=== PATIENT | female | born 1990 | race Caucasian/White ===

== ENCOUNTER 2016-11-30 04:09 | Emergency (ER) | payer BC ==
[2016-11-30] MEDS ORDERED: NS 0.9% 1000 ML* 1,000 ML IV ONE ×2 (04:26→05:20)
[2016-11-30] MEDS ORDERED: Ondansetron INJ* 2 MG/ML VIAL IV ONE (04:26)
[2016-11-30 04:49] LABS: Hematocrit 44 % (35-47); Hemoglobin 14.8 g/dl (12.0-16.0); Mean Corpuscular HGB Conc 34 g/dl (31-36); Mean Corpuscular Hemoglobin 31 pg (27-31); Mean Corpuscular Volume 91 fL (80-97); Mean Platelet Volume 9 um3 (7.4-10.4); Red Blood Count 4.83 10^6/ul (4.0-5.4); Red Cell Distribution Width 13 % (10.5-15); White Blood Count 14.8 10^3/ul (3.5-10.8)
[2016-11-30 05:01] LABS: ALT 18 U/L (7-52); AST 21 U/L (13-39); Albumin 4.3 g/dL (3.2-5.2); Alkaline Phosphatase 50 U/L (34-104); Anion Gap 10 mmol/L (2-11); BUN/Creatinine Ratio 23.2 (8-20); Blood Urea Nitrogen 19 mg/dL (6-24); C Reactive Protein 42.11 mg/L (< 5.00); CO2 Carbon Dioxide 24 mmol/L (22-32); Calcium 9.2 mg/dL (8.6-10.3); Chloride 101 mmol/L (101-111); EGFR African American 107.5 (>60); EGFR Non-African American 83.6 (>60); Globulin 2.3 g/dL (2-4); Glucose 129 mg/dL (70-100); Lipase 18 U/L (11.0-82.0); Magnesium 1.5 mg/dL (1.9-2.7); Potassium 3.1 mmol/L (3.5-5.0); Sodium 135 mmol/L (133-145); Total Protein 6.6 g/dL (6.4-8.9)
--- NOTE | 2016-11-30 05:37 | ED ---
Keny Hurd Billy, scribed for Eliud Luu MD on 11/30/16 at 0433 . GI/ HPI - HPI Summary HPI Summary: Patient is a 26 year-old female coming to [facility] presenting with multiple episodes of nausea and vomiting since 1200 yesterday. Her symptoms are worse with any PO intake. She also has a fever in the ED. Denies any diarrhea or urinary symptoms. She states that her abdomen is sore, diffusely, after her frequent episodes of emesis. Patient states that she had eaten at a [employer] the night before the onset of her symptoms. No prior GI disorders. LMP 3 weeks ago, IUD in place. - History of Current Complaint Chief Complaint: EDNauseaVomitDiarrh Time Seen by Provider: 11/30/16 04:18 Stated Complaint: VOMITING/WEAKNESS Hx Obtained From: Patient Timing: Constant Severity: Moderate Current Severity: Moderate Pain Intensity: 8 Location of Pain: Diffuse Associated Signs and Symptoms: Positive: Nausea, Vomiting, Fever, Abdominal Pain. Negative: Diarrhea Aggravating Factor(s): Food, Liquids Alleviating Factor(s): Nothing - Allergy/Home Medications Allergies/Adverse Reactions: Allergies Allergy/AdvReac Type Severity Reaction Status Date / Time Erythromycin Allergy Intermediate Rash Verified 02/16/13 09:08 PMH/Surg Hx/FS Hx/Imm Hx Endocrine/Hematology History: Denies: Hx Diabetes, Hx Thyroid Disease Cardiovascular History: Denies: Hx Hypertension Respiratory History: Reports: Hx Asthma - exercise induced as a child Denies: Hx Chronic Obstructive Pulmonary Disease (COPD) GI History: Denies: Hx Ulcer - Surgical History Surgery Procedure, Year, and Place: t&a as a child Infectious Disease History: No Infectious Disease History: Denies: Hx Hepatitis, Hx Human Immunodeficiency Virus (HIV), Traveled Outside the [place] in Last 30 Days - Family History Known Family History: Positive: Other Family History: Mother with diverticulitis. - Social History Alcohol Use: Occasionally Substance Use Type: Reports: None Review of Systems Positive: Fever Positive: Vomiting, Nausea. Negative: Diarrhea Negative: dysuria All Other Systems Reviewed And Are Negative: Yes Physical Exam Triage Information Reviewed: Yes Vital Signs On Initial Exam: Initial Vitals Temp Pulse Resp BP Pulse Ox 101.3 F 90 16 116/66 99 11/30/16 04:17 11/30/16 04:17 11/30/16 04:17 11/30/16 04:17 11/30/16 04:17 Vital Signs Reviewed: Yes Appearance: Positive: Well-Appearing, No Pain Distress Skin: Positive: Warm Eyes: Positive: ROCIO ENT: Positive: Hearing grossly normal Neck: Positive: Supple Respiratory/Lung Sounds: Positive: Clear to Auscultation, Breath Sounds Present Cardiovascular: Positive: RRR Abdomen Description: Positive: Nontender, No Organomegaly, Soft Bowel Sounds: Positive: Present Musculoskeletal: Positive: Strength/ROM Intact Neurological: Positive: Sensory/Motor Intact, Alert, Oriented to Person Place, Time Psychiatric: Positive: Normal Diagnostics - Vital Signs Vital Signs Temp Pulse Resp BP Pulse Ox 11/30/16 04:17 101.3 F 90 16 116/66 99 - Laboratory Lab Results: Lab Results 11/30/16 11/30/16 11/30/16 Range/Units 04:20 04:20 04:20 WBC 14.8 H (3.5-10.8) 10^3/ul RBC 4.83 (4.0-5.4) 10^6/ul Hgb 14.8 (12.0-16.0) g/dl Hct 44 (35-47) % MCV 91 (80-97) fL MCH 31 (27-31) pg MCHC 34 (31-36) g/dl RDW 13 (10.5-15) % Plt Count 197 (150-450) 10^3/ul MPV 9 (7.4-10.4) um3 Neut % (Auto) 91.4 H (38-83) % Lymph % (Auto) 4.1 L (25-47) % Ramsey % (Auto) 4.1 (1-9) % Eos % (Auto) 0.2 (0-6) % Baso % (Auto) 0.2 (0-2) % Absolute Neuts (auto) 13.6 H (1.5-7.7) 10^3/ul Absolute Lymphs (auto) 0.6 L (1.0-4.8) 10^3/ul Absolute Monos (auto) 0.6 (0-0.8) 10^3/ul Absolute Eos (auto) 0 (0-0.6) 10^3/ul Absolute Basos (auto) 0 (0-0.2) 10^3/ul Absolute Nucleated RBC 0.01 10^3/ul Nucleated RBC % 0 Sodium 135 (133-145) mmol/L Potassium 3.1 L (3.5-5.0) mmol/L Chloride 101 (101-111) mmol/L Carbon Dioxide 24 (22-32) mmol/L Anion Gap 10 (2-11) mmol/L BUN 19 (6-24) mg/dL Creatinine 0.82 (0.51-0.95) mg/dL Est GFR ( Amer) 107.5 (>60) Est GFR (Non-Af Amer) 83.6 (>60) BUN/Creatinine Ratio 23.2 H (8-20) Glucose 129 H (70-100) mg/dL Lactic Acid 1.7 (0.5-2.0) mmol/L Calcium 9.2 (8.6-10.3) mg/dL Magnesium 1.5 L (1.9-2.7) mg/dL Total Bilirubin 0.80 (0.2-1.0) mg/dL AST 21 (13-39) U/L ALT 18 (7-52) U/L Alkaline Phosphatase 50 (34-104) U/L C-Reactive Protein 42.11 H (< 5.00) mg/L Total Protein 6.6 (6.4-8.9) g/dL Albumin 4.3 (3.2-5.2) g/dL Globulin 2.3 (2-4) g/dL Albumin/Globulin Ratio 1.9 (1-3) Lipase 18 (11.0-82.0) U/L Beta HCG, Quant < 0.60 mIU/mL Result Diagrams: 11/30/16 04:20 11/30/16 04:20 Lab Statement: Any lab studies that have been ordered have been reviewed, and results considered in the medical decision making process. Re-Evaluation - Re-Evaluation First Eval Change: Improved - much improved after fluids GIGU Course/Dx - Diagnoses Provider Diagnoses: Vomiting Discharge - Discharge Plan Condition: Improved Disposition: HOME Patient Education Materials: Acute Nausea and Vomiting (ED) Referrals: [facility] [Outside] The documentation as recorded by the Keny garcia Billy accurately reflects the service I personally performed and the decisions made by me, Eliud Luu MD.
[2016-11-30 06:23] VITALS: BP 122/58
== END 2016-11-30 06:21 | disposition home or self-care (01) ==
LOC: ED 04:09
DX: R11.2 Nausea with vomiting, unspecified (principal); R50.9 Fever, unspecified; R10.9 Unspecified abdominal pain
CPT/HCPCS: 36415; 80053; 83605; 83690; 83735; 84702; 85025; 86140; 96361; 96374; 99282; J2405

== ENCOUNTER 2018-09-23 12:50 | Emergency (ER) | payer BC ==
[2018-09-23 15:38] VITALS: BP 119/77
--- NOTE | 2018-09-23 15:47 | UC ---
UC General HPI - HPI Summary HPI Summary: became ill end of jul to early august with a "cold". getting worse with sinus pressure, drainage and a harsh-congested cough. + wheezing. subjective fever and chills. - History of Current Complaint Chief Complaint: UCGeneralIllness Stated Complaint: ST, COUGH Time Seen by Provider: 09/23/18 15:28 Hx Obtained From: Patient Hx Last Menstrual Period: IUD Onset/Duration: Gradual Onset Timing: Constant Pain Intensity: 7 Alleviating: nothing Associated Signs & Symptoms: Positive: Cough, Wheezing - Allergy/Home Medications Allergies/Adverse Reactions: Allergies Allergy/AdvReac Type Severity Reaction Status Date / Time erythromycin base Allergy Rash Verified 09/23/18 15:28 Home Medications: Home Medications Dm/PE/Acetaminophen/Chlorphenr [[place] Plus Cold &] 2 cap PO ONCE PRN 01/09 [History Confirmed 09/23/18] PMH/Surg Hx/FS Hx/Imm Hx Previously Healthy: Yes - Surgical History Surgical History: Yes Surgery Procedure, Year, and Place: t&a as a child - Family History Known Family History: Positive: Other Family History: Mother with diverticulitis. - Social History Occupation: Employed Full-time Alcohol Use: Rare Substance Use Type: None Smoking Status (MU): Current Every Day Smoker Type: Cigarettes Amount Used/How Often: 1/2 pk qod Length of Time of Smoking/Using Tobacco: 3 yrs Have You Smoked in the Last Year: Yes - Immunization History Vaccination Up to Date: Yes Review of Systems Constitutional: Fever, Chills Skin: Negative Eyes: Negative ENT: Sinus Congestion, Sinus Pain/Tenderness Respiratory: Cough Cardiovascular: Negative Gastrointestinal: Negative Genitourinary: Negative Motor: Negative Neurovascular: Negative Musculoskeletal: Negative Neurological: Negative Psychological: Negative Is Patient Immunocompromised?: No All Other Systems Reviewed And Are Negative: Yes Physical Exam Triage Information Reviewed: Yes Appearance: Well-Appearing Vital Signs: Initial Vital Signs Temp 98.5 F 09/23/18 15:32 Pulse 88 09/23/18 15:32 Resp 22 09/23/18 15:32 BP 119/77 09/23/18 15:32 Pulse Ox 100 09/23/18 15:32 Vital Signs Reviewed: Yes Eyes: Positive: Conjunctiva Clear ENT: Positive: Pharynx normal, Nasal congestion, TMs normal, Sinus tenderness. Negative: Nasal drainage Neck: Positive: Supple, Nontender, No Lymphadenopathy Respiratory: Positive: Lungs clear, Decreased breath sounds, Other: - congested cough Cardiovascular: Positive: RRR, No Murmur Abdomen Description: Positive: Nontender, No Organomegaly, Soft Bowel Sounds: Positive: Present Musculoskeletal: Positive: ROM Intact Neurological: Positive: Alert Psychological: Positive: Age Appropriate Behavior Skin Exam: Normal Course/Dx - Differential Dx - Multi-Symptom Provider Diagnoses: sinusitis. bronchitis Discharge - Sign-Out/Discharge Documenting (check all that apply): Patient Departure All imaging exams completed and their final reports reviewed: No Studies - Discharge Plan Condition: Stable Disposition: HOME Prescriptions: Albuterol HFA INHALER* [Ventolin HFA Inhaler*] 2 puff INH Q6H #1 mdi DOXYcycline CAP(*) [DOXYcycline 100MG CAP(*)] 100 mg PO BID 10 Days #20 cap Patient Education Materials: Sinusitis (ED), Acute Bronchitis (ED) Referrals: TERRANCE Cain [Medical Doctor] - Additional Instructions: follow up fhn if not better in 5-7 days or sooner if worse. - Billing Disposition and Condition Condition: STABLE Disposition: Home
== END 2018-09-23 15:52 | disposition home or self-care (01) ==
LOC: UCCORT 12:50
DX: J32.9 Chronic sinusitis, unspecified (principal); J40 Bronchitis, not specified as acute or chronic; F17.210 Nicotine dependence, cigarettes, uncomplicated; Z88.1 Allergy status to other antibiotic agents
CPT/HCPCS: 99212; G0463